=== PATIENT | male | born 1970 | race Hispanic/Latino ===

== ENCOUNTER → 2021-04-13 | Outpatient (CLI) | payer OTHER ==
[~2021-04-13] MED LIST: ASPI-1197 PO; CARV3.1262 PO; CLOP75TA14 PO; FURO40TA7 PO; GLIP5TAB11 PO; LISI2.5T2 PO; METF-445 PO; SPIR25TA PO
== END | disposition home or self-care (01) ==
LOC: SHCH 10:03
PROVIDERS: ATTEND Internal Medicine Cardiovascular Disease
DX: I25.5 Ischemic cardiomyopathy (principal)
CPT/HCPCS: 93306; 93356